=== PATIENT | female | born 1995 ===

== ENCOUNTER 2019-12-13 16:46 | Emergency (ER) | payer MEDICAID, OTHER ==
[2019-12-14 14:44] LABS: SARS-CoV-2 MS2 Positive; SARS-CoV-2 N Gene Negative; SARS-CoV-2 S Gene Negative; SARS-CoV-2 orf1ab Negative
== END 2019-12-13 17:41 | disposition home or self-care (01) ==
LOC: ERS 16:46
DX: R05 Cough (principal); R53.83 Other fatigue; Z20.828 Contact with and (suspected) exposure to other viral communicable diseases
CPT/HCPCS: 87635; 99283; U0003